=== PATIENT | male | born 1995 | race Caucasian/White ===

== ENCOUNTER 2018-08-18 18:20 | Emergency (ER) | payer BC ==
[~2018-08-18] VITALS: Ht 182.9 cm; Wt 100.9 kg
[~2018-08-18 18:20] MED LIST: FAMO-96 PO; IBUP800T48 PO
[2018-08-18 18:24] VITALS: BP 135/75; PULSE 81; RESP 18; Ht 182.9 cm; Wt 100.9 kg
[2018-08-18] MEDS ORDERED: HYDR-4011 PO (20:06)
[2018-08-18] MEDS ORDERED: IBUP800T48 PO (20:06)
--- NOTE | 2018-08-18 20:13 | ERD ---
ER Documentation Chief Complaint Chief Complaint c/o left middle finger pain. O2 tank fell on it yesterday. HPI Left hand dominant 23-year-old male who has left distal middle finger pain after a oxygen tank fell onto it yesterday. No pain at rest or when anything touches it or he moves that he has moderate pain. No numbness or tingling. Declined any pain medication at this time. ROS All systems reviewed and are negative except as per history of present illness. Medications Home Meds Active Scripts Hydrocodone/Acetaminophen ([place]ar 5-325 Tablet) 1 Each Tablet, 1 TAB PO Q6H PRN for PAIN, #15 TAB Prov:PRINCE BREWER PA-C 08/18/18 Ibuprofen* (Motrin*) 800 Mg Tab, 800 MG PO Q6, #30 TAB Prov:PRINCE BREWER PA-C 08/18/18 Famotidine* (Pepcid*) 20 Mg Tablet, 20 MG PO BID for 4 Days, TAB Prov:JUAN RAMON FERGUSON DO 12/05/14 Ibuprofen* (Motrin*) 800 Mg Tab, 800 MG PO Q6, #30 TAB Prov:JUAN RAMON FERGUSON DO 12/05/14 Allergies Allergies: Coded Allergies: No Known Allergy (Unverified , 12/05/14) PMhx/Soc History of Surgery: No Anesthesia Reaction: No Hx Neurological Disorder: No Hx Respiratory Disorders: No Hx Cardiac Disorders: No Hx Miscellaneous Medical Probl: No Hx Alcohol Use: Yes Hx Substance Use: No Hx Tobacco Use: Yes Smoking Status: Current every day smoker FmHx Family History: No diabetes Physical Exam Vitals Vital Signs Date Temp Pulse Resp B/P (MAP) Pulse Ox O2 O2 Flow FiO2 Time Delivery Rate 08/18/18 98.5 81 18 135/75 98 18:24 (95) Physical Exam Const: No acute distress Head: Atraumatic Eyes: Normal Conjunctiva ENT: Normal External Ears, Nose and Mouth. Neck: Full range of motion. No meningismus. Resp: Clear to auscultation bilaterally Cardio: Regular rate and rhythm, no murmurs Hand -left Skin: Swelling and ecchymosis over the left distal middle finger Compartments: Soft Sensation: Intact shoulder/pinky/middle finger/thumb web space Bones: Distal left middle finger tender Snuffbox: Nontender Joints: No effusion Finger: Flex/Ext: Normal Add/abd: Normal Procedures/MDM Patient has a distal left middle finger fracture which was confirmed on x-ray. He is neurovascular intact. He declined pain medication. Prescription for pain medication and outpatient orthopedic referral given. Prescription for [place] and ibuprofen given. Placed in a metal finger splint. Patient counseled regarding my diagnostic impression and care plan. Prior to discharge all questions answered. Pt agrees with treatment plan and understands strict return precautions. Pt is instructed to follow up with primary care provider within 24- 48 hours. Precautionary instructions provided including instructions to return to the ER if not improving or for any worsening or changing symptoms or concerns. Departure Diagnosis: Primary Impression: Finger fracture Condition: Stable Patient Instructions: Finger and Toe Fractures (Broken Finger or Toe) Referrals: [facility] YOU HAVE RECEIVED A MEDICAL SCREENING EXAM AND THE RESULTS INDICATE THAT YOU DO NOT HAVE A CONDITION THAT REQUIRES URGENT TREATMENT IN THE EMERGENCY DEPARTMENT. FURTHER EVALUATION AND TREATMENT OF YOUR CONDITION CAN WAIT UNTIL YOU ARE SEEN IN YOUR DOCTORS OFFICE WITHIN THE NEXT 1-2 DAYS. IT IS YOUR RESPONSIBILITY TO MAKE AN APPOINTMENT FOR FOLOW-UP CARE. IF YOU HAVE A PRIMARY DOCTOR --you should call your primary doctor and schedule and appointment IF YOU DO NOT HAVE A PRIMARY DOCTOR YOU CAN CALL OUR PHYSICIAN REFERRAL HOTLINE AT . IF YOU CAN NOT AFFORD TO SEE A PHYSICIAN YOU CAN CHOSE FROM THE FOLLOWING [facility]: [facility] [id number] [place] [address] [facility] [address] [place] [address] [facility] [address] [place] [address] [facility] Additional Instructions: SPECIALIST: YOU HAVE A MEDICAL CONDITION WHICH REQUIRES YOU TO SEE A SPECIALIST WITHIN THE NEXT 1-2 DAYS. PLEASE FOLLOW UP WITH YOUR PRIMARY PHYSICIAN FOR REFFERAL.IF YOU DO NOT HAVE A PRIMARY CARE PHYSICIAN AND/OR YOU CAN NOT AFFORD TO SEE A PHYSICIAN THE FOLLOWING RESOURCES HAVE BEEN SUPPLIED TO YOU. IT IS YOUR RESPONSIBILITY TO BE SEEN BY THE SPECIALIST PRINCE BREWER PA-C Aug 18, 2018 20:13
== END 2018-08-18 20:52 | disposition home or self-care (01) ==
LOC: FTE 18:20
DX: S62.663A Nondisplaced fracture of distal phalanx of left middle finger, initial encounter for closed fracture (principal); F17.210 Nicotine dependence, cigarettes, uncomplicated; W20.8XXA Other cause of strike by thrown, projected or falling object, initial encounter; Y92.9 Unspecified place or not applicable